=== PATIENT | male | born 1960 | race Caucasian/White ===

== ENCOUNTER 2022-01-28 08:00 | Day surgery (SDC) | payer BC ==
[2022-01-26 15:34] VITALS: BMI 29.0
[2022-01-28] MEDS ORDERED: LIDOCAINE HCL/PF 2% SDV 5ML VIAL ONE (10:49)
[2022-01-28] MEDS ORDERED: MIDAZOLAM HCL 2 MG/2 ML SINGLE DOSE VIAL ONE (10:50)
[2022-01-28] MEDS ORDERED: PROPOFOL 20 ML ONE ×2 (10:50)
[2022-01-28] MEDS ORDERED: BUPIVACAINE HCL/PF 0.25% (2.5MG/ML) 10 ML VIAL ONE (11:10)
[2022-01-28] MEDS ORDERED: TRIAMCINOLONE ACET 40MG/1ML VIAL ONE (11:10)
[2022-01-28] MEDS ORDERED: ONDANSETRON 4 MG/2 ML VIAL ONE (11:30)
[2022-01-28] MEDS ORDERED: DEXAMETHASONE SOD PHOSPHATE 4 MG/1 ML VIAL ONE (11:30)
[2022-01-28] MEDS ORDERED: ceFAZolin SODIUM 1 GM VIAL ONE (11:30)
[2022-01-28] MEDS ORDERED: IBUPROFEN 800 MG/8 ML IJ IVPB PRN (12:59)
[2022-01-28] MEDS ORDERED: FENTANYL CITRATE/PF 50 MCG/ML VIAL ONE (12:59)
[2022-01-28] MEDS ORDERED: ONDANSETRON 4 MG/2 ML VIAL IVPUSH PRN (12:59)
[2022-01-28] MEDS ORDERED: LACTATED RINGERS SOLUTION 1,000 ML IV SCH (13:00)
[2022-01-28] MEDS ORDERED: IBUPROFEN 800 MG/8 ML IJ IVPB ONE (13:15)
[2022-01-28 13:57] VITALS: TEMP 97.8
[2022-01-28 15:06] VITALS: BP 133/86; PULSE 66
== END 2022-01-28 14:15 | disposition home or self-care (01) ==
LOC: FASU 08:00
PROVIDERS: ATTEND Orthopaedic Surgery Adult Reconstructive Orthopaedic Surgery
PROC: 0SBC4ZZ Excision of Right Knee Joint, Percutaneous Endoscopic Approach (ICD-10-PCS; principal; 2022-01-28 11:54)
DX: M23.221 Derangement of posterior horn of medial meniscus due to old tear or injury, right knee (principal); M23.41 Loose body in knee, right knee; M65.861 Other synovitis and tenosynovitis, right lower leg; M94.261 Chondromalacia, right knee
CPT/HCPCS: 94760